=== PATIENT | female | born 1950 | race Caucasian/White ===

== ENCOUNTER → 2020-02-23 08:19 | Outpatient (CLI) | payer MEDICARE, OTHER, SELFPAY ==
--- NOTE | 2020-02-23 08:43 | CT_ITS ---
PROCEDURE: CT ABDOMEN PELVIS WO CON CLINICAL INDICATION: mass/ ostomey take down Right lower quadrant mass, right lower quadrant pain COMPARISON: No exams were available for comparison TECHNIQUE: Axial images obtained with sagittal and coronal reformats. All CT scans at the facility use one or more dose reduction, viz: automated exposure control, ma/kV adjustment per patient size (including targeted exams where dose is matched to indication, i.e. head), or iterative reconstruction technique. Oral contrast was utilized. IV contrast was not given. FINDINGS: LOWER THORAX: There is a moderate-sized hiatal hernia with thickening distal esophagus and GE junction. Minimal atelectatic or fibrotic changes are present in the right lung base. ABDOMEN & PELVIS: Liver, gallbladder, spleen, and right adrenal gland have an unremarkable appearance. Left adrenal gland is slightly prominent but maintains an adrenal form shape measuring negative -3 Hounsfield units suggesting adenomatous involvement. There is no obvious pancreatic mass or peripancreatic fluid collections or inflammation. 2.6 cm hypodensity noted along the lower pole of the right kidney consistent with a renal cyst and may be confirmed with ultrasound. No intestinal obstruction or free air is evident. No evidence of appendicitis. There are postsurgical changes at the rectosigmoid junction with a suture line at this area and minimal stranding of the pericolic fat at this region. There is a 6 by 5.6 by 6.9 cm rounded soft tissue mass within the subcutaneous tissues of the right lower quadrant. This is inferior to the level of the umbilicus and is lateral to a midline incision. The average internal density is 7 Hounsfield units. At least 1 septation is noted anteriorly. There is some minimal stranding of the fat around this mass. No gas is evident within the mass. The wall of the mass appears thin.. This is contiguous with the anterior aspect of the rectus abdominus muscle. There is no evidence of recurrence hernia. This is not contiguous with the peritoneal structures. No acute bony anomalies. IMPRESSION: 1. 6.9 cm subcutaneous right lower quadrant mass as described above. Differential diagnosis includes seroma, liquefying hematoma, or abscess. 2. No evidence of recurrence hernia 3. Other nonacute findings as described above Dictated by: Yousuf Mccall MD 02/24/2020 08:37 Electronically signed by Yousuf Mccall MD in [place] 02/24/2020 08:37
== END ==
PROVIDERS: PCP Family Medicine; Visit Provider Family Medicine
DX: R19.03 Right lower quadrant abdominal swelling, mass and lump (principal)
CPT/HCPCS: 74176